=== PATIENT | male | born 1970 ===

== ENCOUNTER 2024-01-23 05:10 | Day surgery (SDC) | payer OTHER ==
[~2024-01-23 05:10] MED LIST: CLONAZEPAM0.5 M1 PO; CRESTOR40 MG PO
[2024-01-23] MEDS ORDERED: LIDOCAINE HCL/EPINEPHRINE 10MG/ML 1% 50ML IJ ONE (07:01)
[2024-01-23] MEDS ORDERED: BUPIVACAINE HCL/PF 0.5% 30ML ML ONE (07:01)
[2024-01-23] MEDS ORDERED: CEFAZOLIN SODIUM 1,000 MG VIAL ONE (07:06)
[2024-01-23] MEDS ORDERED: BUPIVACAINE HCL/PF 0.25% 30ML VIAL InF ONE (08:15)
[2024-01-23] MEDS ORDERED: CEFAZOLIN SODIUM 1,000 MG VIAL IV ONE (08:15)
[2024-01-23] MEDS ORDERED: KETOROLAC TROMETHAMINE 30 MG VIAL ONE (08:22)
[2024-01-23] MEDS ORDERED: KETOROLAC TROMETHAMINE 30 MG VIAL IV ONE (08:30)
[2024-01-23] MEDS ORDERED: TRAMADOL HCL50 MG PO (09:01)
[2024-01-23] MEDS ORDERED: MIRALAX17 GM PO (09:01)
[2024-01-23] MEDS ORDERED: KETO10TA2 PO (09:01)
[2024-01-23] MEDS ORDERED: TYLENOL ARTHRI650 MG PO (09:01)
== END 2024-01-23 12:15 | disposition home or self-care (01) ==
LOC: CIR.AMB 05:10
PROVIDERS: ATTEND Surgery
DX: K40.90 Unilateral inguinal hernia, without obstruction or gangrene, not specified as recurrent (principal); K42.9 Umbilical hernia without obstruction or gangrene; I10 Essential (primary) hypertension
CPT/HCPCS: 49650; 49591; C1781